=== PATIENT | female | born 1990 | race Caucasian/White ===

== ENCOUNTER 2017-08-10 20:36 | Outpatient (CLI) | payer OTHER ==
[~2017-08-10] VITALS: Ht 162.6 cm; Wt 82.0 kg
[2017-08-10 21:02] VITALS: BP 132/75
[2017-08-10] MEDS ORDERED: PRENATAL TABLE1 EAC3 PO (21:19)
[2017-08-10] MEDS ORDERED: ZANTAC150 MG PO (21:20)
== END 2017-08-10 22:05 | disposition home or self-care (01) ==
LOC: LDRP-OP 20:36 → 2WEST 20:39 → LDRP-OP 10-06 12:14
DX: O46.93 Antepartum hemorrhage, unspecified, third trimester (principal); Z3A.36 36 weeks gestation of pregnancy
CPT/HCPCS: 59025; G0378

== ENCOUNTER 2017-08-28 06:14 | Inpatient (IN) | payer OTHER ==
[~2017-08-28] VITALS: Ht 162.6 cm; Wt 88.6 kg
[2017-08-28] VITALS (9 sets, daily range): BP systolic 113–138; BP diastolic 53–81
[~2017-08-28 06:14] MED LIST: PRENATAL TABLE1 EAC3 PO; ZANTAC150 MG PO
[2017-08-28 07:16] LABS: EOSINOPHIL (%) 0.8 % (0-5); EOSINOPHIL COUNT 0.1 K/uL (0-0.3); HEMATOCRIT 35.5 % (36.0-46.0); IMMATURE GRANULOCYTE (%) 1.4 % (0.0-0.7); IMMATURE GRANULOCYTE COUNT 0.1 K/uL; INSTRUMENT ABS NEUTROPHIL CT 4.3 K/uL; LYMPHOCYTE COUNT 1.3 K/uL (1.0-2.8); MCH 29.3 PG (29.0-34.0); MCHC 33.5 G/DL (30.0-36.0); MCV 87.4 FL (83-99); MEAN PLAT.VOLUME 12.2 uM^3 (9.5-12.4); MONOCYTE COUNT 0.6 K/uL (0-0.8); NEUTROPHIL (%) 67.5 % (45-76); NEUTROPHIL COUNT 4.3 K/uL (1.8-6.4); PLATELET COUNT 185 K/uL (156-360); RBC DIS.WIDTH-CV 14.5 % (11.8-14.6); RBC DIS.WIDTH-SD 46.1 % (39-53); RED BLOOD COUNT 4.06 M/uL (3.80-5.20); WHITE BLOOD COUNT 6.4 K/uL (4.1-10.2)
[2017-08-28] MEDS ORDERED: ENDOCET 5-3251 EACH PO (14:48)
[2017-08-28] MEDS ORDERED: IBUPROFEN800 MG PO (14:48)
[2017-08-29] VITALS (7 sets, daily range): BP systolic 109–136; BP diastolic 56–72
[2017-08-29 07:25] LABS: EOSINOPHIL (%) 0.1 % (0-5); HEMATOCRIT 25.1 % (36.0-46.0); IMMATURE GRANULOCYTE (%) 0.8 % (0.0-0.7); IMMATURE GRANULOCYTE COUNT 0.1 K/uL; INSTRUMENT ABS NEUTROPHIL CT 10.3 K/uL; LYMPHOCYTE COUNT 2.5 K/uL (1.0-2.8); MCH 31.2 PG (29.0-34.0); MCHC 34.7 G/DL (30.0-36.0); MEAN PLAT.VOLUME 12.3 uM^3 (9.5-12.4); MONOCYTE (%) 8.7 % (3-12); MONOCYTE COUNT 1.2 K/uL (0-0.8); NEUTROPHIL (%) 72.5 % (45-76); NEUTROPHIL COUNT 10.3 K/uL (1.8-6.4); PLATELET COUNT 172 K/uL (156-360); RBC DIS.WIDTH-CV 15.1 % (11.8-14.6); RBC DIS.WIDTH-SD 48.9 % (39-53); RED BLOOD COUNT 2.79 M/uL (3.80-5.20); WHITE BLOOD COUNT 14.2 K/uL (4.1-10.2)
[2017-08-30 03:00] VITALS: BP 141/67
[2017-08-30 07:42] VITALS: BP 133/75
[2017-08-30 11:14] VITALS: BP 134/80
[2017-08-30 14:59] VITALS: BP 134/81
[2017-08-31] VITALS: BP 126/74
[2017-08-31 07:15] VITALS: BP 159/70
== END 2017-08-31 12:13 | disposition home or self-care (01) | DRG 765 ==
LOC: LDRP-OP 06:14 → 2WEST 06:15 → LDRP-OP 10-06 22:20
PROVIDERS: Nurse Practitioner; Obstetrics & Gynecology
PROC: 10D00Z1 Extraction of Products of Conception, Low, Open Approach (ICD-10-PCS; principal; 2017-08-28)
DX: O64.0XX0 Obstructed labor due to incomplete rotation of fetal head, not applicable or unspecified (principal); O62.1 Secondary uterine inertia; O66.5 Attempted application of vacuum extractor and forceps; O76 Abnormality in fetal heart rate and rhythm complicating labor and delivery; O99.284 Endocrine, nutritional and metabolic diseases complicating childbirth; O26.86 Pruritic urticarial papules and plaques of pregnancy (PUPPP); O99.02 Anemia complicating childbirth; D62 Acute posthemorrhagic anemia; O99.824 Streptococcus B carrier state complicating childbirth; E78.00 Pure hypercholesterolemia, unspecified; Z3A.38 38 weeks gestation of pregnancy; Z37.0 Single live birth
CPT/HCPCS: 85025; 86140; C1755; J1100; J2175; J2274; J2405; J2540; J2590; J7120